=== PATIENT | female | born 1970 | race Caucasian/White ===

== ENCOUNTER 2016-11-10 16:08 | Emergency (ER) | payer MEDICAID ==
[2016-11-10 16:26] VITALS: BP 128/73; PULSE 73; RESP 16; TEMP 98.5; O2SAT 99
--- NOTE | 2016-11-10 16:40 | ED PDOC ---
HPI: General Adult Time Seen by Provider: 11/10/16 16:29 Chief Complaint (Nursing): Weakness/Neurological Deficit History Per: Patient (Right sided facial numbness assoc with increased tearing x 1 day. Also c/o right sided headache. No peripheral weakness or numbness. H/o [place] Palsy 2 years ago with similar sxs.) Onset/Duration Of Symptoms: Days (1) Current Symptoms Are (Timing): Still Present Severity: Mild Pain Scale Rating Of: 1 Past Medical History Vital Signs: Last Vital Signs Temp 98.5 F 11/10/16 16:21 Pulse 73 11/10/16 16:21 Resp 16 11/10/16 16:21 BP 128/73 11/10/16 16:21 Pulse Ox 99 11/10/16 16:41 - Medical History Other PMH: [place] Palsy - Family History Family History: States: Unknown Family Hx - Home Medications Home Medications: Ambulatory Orders Medication Instructions Recorded Naproxen [Naprosyn] 500 mg PO Q12H #20 tab 11/10/16 Valacyclovir HCl [Valtrex] 1 gm PO TID #30 tablet 11/10/16 - Allergies Allergies/Adverse Reactions: Allergies Allergy/AdvReac Type Severity Reaction Status Date / Time No Known Allergies Allergy Verified 11/10/16 16:21 Review of Systems ROS Statement: Except As Marked, All Systems Reviewed And Found Negative Neurological: Positive for: Headache, Other (Right facial numbness) Physical Exam - Reviewed Nursing Documentation Reviewed: Yes Vital Signs Reviewed: Yes - Physical Exam Appears: Positive for: Non-toxic, No Acute Distress Head Exam: Positive for: ATRAUMATIC, NORMAL INSPECTION, NORMOCEPHALIC Skin: Positive for: Normal Color, Warm, DRY Eye Exam: Positive for: EOMI, Normal appearance, PERRL ENT: Positive for: Normal ENT Inspection Neck: Positive for: Normal, Painless ROM Cardiovascular/Chest: Positive for: Regular Rate, Rhythm Respiratory: Positive for: CNT, Normal Breath Sounds Gastrointestinal/Abdominal: Positive for: Normal Exam, Bowel Sounds, Soft Back: Positive for: Normal Inspection Extremity: Positive for: Normal ROM Neurologic/Psych: Positive for: Alert, Oriented, Motor/Sensory Deficits (Right facial decreased sensation. No motor deficits). Negative for: Facial Droop - ECG O2 Sat by Pulse Oximetry: 99 Disposition - Clinical Impression Clinical Impression: Moody's palsy - Patient ED Disposition Is Patient to be Admitted: No Counseled Patient/Family Regarding: Studies Performed, Diagnosis, Need For Followup, Rx Given - Disposition Referrals: Slim Kent MD [Staff Provider] - Disposition: Routine/Home Disposition Time: 17:49 Condition: FAIR Prescriptions: Naproxen [Naprosyn] 500 mg PO Q12H #20 tab Valacyclovir HCl [Valtrex] 1 gm PO TID #30 tablet Instructions: [place] Palsy (ED)
--- NOTE | 2016-11-10 17:31 | CT ---
PROCEDURE: CT HEAD WITHOUT CONTRAST. HISTORY: right sided headache COMPARISON: None available. TECHNIQUE: Axial computed tomography images were obtained through the head/brain without intravenous contrast. Coronal and sagittal reconstructed images. Radiation dose: Total exam DLP = 748.00 mGy-cm. This CT exam was performed using one or more of the following dose reduction techniques: Automated exposure control, adjustment of the mA and/or kV according to patient size, and/or use of iterative reconstruction technique. FINDINGS: HEMORRHAGE: No intracranial hemorrhage. BRAIN: No mass effect or edema. No atrophy or chronic microvascular ischemic changes. VENTRICLES: Unremarkable. No hydrocephalus. CALVARIUM: Unremarkable. PARANASAL SINUSES: Unremarkable as visualized. No significant inflammatory changes. MASTOID AIR CELLS: Unremarkable as visualized. No inflammatory changes. OTHER FINDINGS: None. IMPRESSION: No acute intracranial abnormalities. No significant findings to account for the clinical presentation.
== END 2016-11-10 18:09 | disposition home or self-care (01) ==
LOC: H.ER 16:08
DX: G51.0 Bell's palsy (principal); R53.1 Weakness; R20.0 Anesthesia of skin